=== PATIENT | female | born 1960 | race Hispanic/Latino ===

== ENCOUNTER 2020-05-26 15:57 | Emergency (ER) | payer BC ==
[2020-05-26] MEDS ORDERED: LIDOCAINE HCL 2% VISCOUS 15 ML UDCUP ONE (17:41)
[2020-05-26] MEDS ORDERED: MAG HYDROX/AL HYDROX/SIMETH ES 30 ML SUSP UDCUP ONE (17:41)
[2020-05-26] MEDS ORDERED: ACETAMINOPHEN 325 MG TAB ONE (20:42)
[2020-05-26] MEDS ORDERED: AZITHROMYCIN 250 MG TABLET PO ONE (23:19)
== END 2020-05-27 00:25 | disposition home or self-care (01) ==
LOC: EDH 15:57
DX: U07.1 COVID-19 (principal); K29.00 Acute gastritis without bleeding; J12.89 Other viral pneumonia; M19.90 Unspecified osteoarthritis, unspecified site; E11.9 Type 2 diabetes mellitus without complications; Z88.6 Allergy status to analgesic agent
CPT/HCPCS: 36415; 71045; 74176; 80053; 81001; 83690; 84484 ×2; 85025; 86677; 87804 ×2; 93005; 96361; 96374; 99285; U0003

== ENCOUNTER 2020-06-01 06:50 | Inpatient (IN) | payer BC ==
[~2020-06-01] VITALS: Ht 152.4 cm; Wt 68.7 kg
[2020-06-01 08:04] LABS: BASOPHILS % (AUTO) 0.3 % (0.0-5.0); HEMATOCRIT 38.4 % (36-48); LYMPHOCYTES % (AUTO) 11.6 % (21.0-51.0); MEAN CORPUSCULAR HEMOGLOBIN 29.5 pg (27.0-33.0); MEAN CORPUSCULAR HGB CONC 34.1 g/dL (32.0-36.0); MEAN CORPUSCULAR VOLUME 86.5 fL (79-99); MONOCYTES % (AUTO) 7.8 % (3.0-13.0); NEUTROPHILS % (AUTO) 78.8 % (40.0-77.0); PLATELET COUNT (AUTO) 392 K/uL (130-400); RED BLOOD CELL COUNT(AUTO) 4.44 MIL/uL (4.00-5.50); RED CELL DISTRIBUTION WIDTH 12.1 % (11.0-15.5); WHITE BLOOD COUNT (AUTO) 6.3 K/uL (4.8-10.8)
[2020-06-01] MEDS ORDERED: ALBUTEROL INHALER 90MCG/INH IH ONE ×2 (08:19→08:36)
[2020-06-01] MEDS ORDERED: ACETAMINOPHEN 325 MG TAB ONE (08:20)
[2020-06-01 08:23] LABS: INR 0.98 (0.85-1.15); PARTIAL THROMBOPLASTIN TIME 26.3 SEC (26.3-35.5); PROTHROMBIN TIME 10.6 SEC (9.6-11.6)
[2020-06-01 08:32] LABS: ALANINE AMINOTRANSFERASE 34 U/L (12-78); ALBUMIN 2.7 g/dL (3.5-5.0); ASPARTATE AMINOTRANSFERASE 22 U/L (10-37); BILIRUBIN,TOTAL 0.6 mg/dL (0.2-1.0); CARBON DIOXIDE 24 mmol/L (21-32); CHLORIDE 101 mmol/L (101-111); CREATINE KINASE, TOTAL 28 U/L (21-232); CREATININE 0.5 mg/dL (0.5-1.5); GLOMERULAR FILTR. RATE CALC 135 mL/min (>60); GLUCOSE,RANDOM 222 mg/dL (70-105); MYOGLOBIN 23 ng/mL (10-92); POTASSIUM 3.5 mmol/L (3.5-5.1); SODIUM SERUM 137 mmol/L (136-145); TOTAL PROTEIN, SERUM 7.1 g/dL (6.0-8.3); TROPONIN I < 0.04 ng/mL (0.00-0.06); UREA NITROGEN, BLOOD 14 mg/dL (7-18)
[2020-06-01] MEDS ORDERED: AZITHROMYCIN 500MG+NS 250ML 250 ML IV ONE ×2 (08:56→11:17)
[2020-06-01] MEDS ORDERED: CEFTRIAXONE SODIUM 1 GM ONE (08:56)
[2020-06-01] MEDS ORDERED: DEXAMETHASONE SOD PHOSPHATE 10MG/ML 1ML VIAL ONE (08:56)
[2020-06-01] MEDS ORDERED: LOPERAMIDE 1 MG/7.5 ML UDCUP PO PRN (11:45)
[2020-06-01] MEDS ORDERED: HYDRALAZINE HCL 20 MG/ML VIAL IV PRN (11:45)
[2020-06-01] MEDS ORDERED: POTASSIUM CHLORIDE 20 MEQ ERTAB PO PRN (11:45)
[2020-06-01] MEDS ORDERED: POTASSIUM CHLORIDE 20MEQ/100ML 100 ML IV PRN (11:45)
[2020-06-01] MEDS ORDERED: LIDOCAINE HCL-MPF 1% 2ML VIAL IV PRN (11:45)
[2020-06-01] MEDS ORDERED: GLUCAGON 1MG KIT 1 MG ML IM PRN (11:45)
[2020-06-01] MEDS ORDERED: ERGOCALCIFEROL (VITAMIN D2) 50,000 UNIT CAPSULE PO SCH (11:45)
[2020-06-01] MEDS ORDERED: LABETALOL 20 MG/4 ML DISP.SYRIN IV PRN (11:45)
[2020-06-01] MEDS ORDERED: ONDANSETRON HCL 4 MG/2 ML VIAL IVP PRN (11:45)
[2020-06-01] MEDS ORDERED: POTASSIUM CHLORIDE 10% ELIXIR 20 MEQ/15 ML UDCUP PO PRN (11:45)
[2020-06-01] MEDS ORDERED: DEXTROSE 50%-WATER 50 ML DISP.SYRIN IV PRN (11:45)
[2020-06-01] MEDS ORDERED: IPRATROPIUM/ALBUTEROL SULFATE 3 ML SOLUTION IH PRN (11:45)
[2020-06-01] MEDS: PHARMACY COMMUNICATION MISC SCH (12:00)
[2020-06-01] MEDS ORDERED: FUROSEMIDE 10 MG/ML 4ML VIAL ONE ×2 (12:35→21:57)
[2020-06-01] MEDS ORDERED: ERGOCALCIFEROL (VITAMIN D2) 50,000 UNIT CAPSULE ONE (12:35)
[2020-06-01] MEDS ORDERED: REMDESIVIR (INVESTIGATIONAL) 200 MG in SODIUM CHLORIDE 0.9% 250 ML IV SCH (16:30)
[2020-06-01] MEDS ORDERED: INSULIN HUMULIN R 100 UNIT/ML 3ML ONE ×2 (17:26→21:58)
[2020-06-01] MEDS: ENOXAPARIN SODIUM 40 MG/0.4 ML SYRINGE SQ SCH (21:00)
[2020-06-01] MEDS ORDERED: ENOXAPARIN SODIUM 40 MG/0.4 ML SYRINGE SQ ONE (21:57)
[2020-06-02 04:20] LABS: BASOPHILS % (AUTO) 0.2 % (0.0-5.0); HEMATOCRIT 37.7 % (36-48); LYMPHOCYTES % (AUTO) 16.8 % (21.0-51.0); MEAN CORPUSCULAR HEMOGLOBIN 29.3 pg (27.0-33.0); MEAN CORPUSCULAR HGB CONC 34.5 g/dL (32.0-36.0); MEAN CORPUSCULAR VOLUME 85.1 fL (79-99); MONOCYTES % (AUTO) 9.9 % (3.0-13.0); NEUTROPHILS % (AUTO) 72.7 % (40.0-77.0); PLATELET COUNT (AUTO) 477 K/uL (130-400); RED BLOOD CELL COUNT(AUTO) 4.43 MIL/uL (4.00-5.50); RED CELL DISTRIBUTION WIDTH 11.9 % (11.0-15.5); WHITE BLOOD COUNT (AUTO) 5.2 K/uL (4.8-10.8)
[2020-06-02 04:54] LABS: ALANINE AMINOTRANSFERASE 37 U/L (12-78); ALBUMIN 2.8 g/dL (3.5-5.0); ASPARTATE AMINOTRANSFERASE 21 U/L (10-37); BILIRUBIN,DIRECT 0.2 mg/dL (0.0-0.3); BILIRUBIN,TOTAL 0.5 mg/dL (0.2-1.0); CARBON DIOXIDE 26 mmol/L (21-32); CHLORIDE 99 mmol/L (101-111); CREATININE 0.6 mg/dL (0.5-1.5); GLOMERULAR FILTR. RATE CALC 109 mL/min (>60); GLUCOSE,RANDOM 159 mg/dL (70-105); LACTATE DEHYDROGENASE 233 U/L (81-234); POTASSIUM 3.2 mmol/L (3.5-5.1); SODIUM SERUM 138 mmol/L (136-145); TOTAL PROTEIN, SERUM 7.5 g/dL (6.0-8.3); UREA NITROGEN, BLOOD 16 mg/dL (7-18)
[2020-06-02] MEDS ORDERED: FUROSEMIDE 10 MG/ML 4ML VIAL ONE ×2 (07:26→23:24)
[2020-06-02] MEDS ORDERED: DEXAMETHASONE SOD PHOSPHATE 10MG/ML 1ML VIAL ONE (07:26)
[2020-06-02] MEDS ORDERED: PANTOPRAZOLE SODIUM 40 MG TABLET.DR ONE (07:27)
[2020-06-02] MEDS ORDERED: ZINC SULFATE 220 CAPSULE ONE (07:27)
[2020-06-02] MEDS ORDERED: ENOXAPARIN SODIUM 40 MG/0.4 ML SYRINGE SQ ONE ×2 (07:27→23:24)
[2020-06-02] MEDS ORDERED: POTASSIUM CHLORIDE 20 MEQ ERTAB PO ONE ×3 (08:46→16:12)
[2020-06-02] MEDS: PANTOPRAZOLE SODIUM 40 MG TABLET.DR PO SCH (09:00)
[2020-06-02] MEDS: ZINC SULFATE 220 CAPSULE PO SCH (09:00)
[2020-06-02] MEDS: DEXAMETHASONE SOD PHOSPHATE 4 MG/ML 1ML VIAL IVP SCH (09:00)
[2020-06-02] MEDS: ASCORBIC ACID 500 MG TAB PO SCH (09:00)
[2020-06-02] MEDS: FUROSEMIDE 10 MG/ML 4ML VIAL IV SCH ×2 (11:45→23:45)
[2020-06-02] MEDS ORDERED: INSULIN HUMULIN R 100 UNIT/ML 3ML ONE (12:20)
[2020-06-02] MEDS ORDERED: REMDESIVIR (INVESTIGATIONAL) 100 MG in SODIUM CHLORIDE 0.9% 250 ML IV SCH (16:30)
[2020-06-02] MEDS: PHARMACY COMMUNICATION MISC SCH (20:00)
[2020-06-02] MEDS: ENOXAPARIN SODIUM 40 MG/0.4 ML SYRINGE SQ SCH (21:00)
[2020-06-02] MEDS: INSULIN HUMULIN R 100 UNIT/ML 3ML SQ SCH (21:00)
[2020-06-02 23:50] VITALS: BP 116/67
[2020-06-03 03:20] VITALS: BP 93/64
[2020-06-03] MEDS: PHARMACY COMMUNICATION MISC SCH ×3 (04:00→20:00)
[2020-06-03 05:41] LABS: HEMATOCRIT 42.6 % (36-48); MEAN CORPUSCULAR HEMOGLOBIN 28.5 pg (27.0-33.0); MEAN CORPUSCULAR HGB CONC 32.9 g/dL (32.0-36.0); MEAN CORPUSCULAR VOLUME 86.8 fL (79-99); RED BLOOD CELL COUNT(AUTO) 4.91 MIL/uL (4.00-5.50); RED CELL DISTRIBUTION WIDTH 12.1 % (11.0-15.5); WHITE BLOOD COUNT (AUTO) 7.6 K/uL (4.8-10.8)
[2020-06-03 06:11] LABS: CREATININE 0.9 mg/dL (0.5-1.5); POTASSIUM 3.8 mmol/L (3.5-5.1)
[2020-06-03] MEDS: INSULIN HUMULIN R 100 UNIT/ML 3ML SQ SCH ×4 (06:50→20:28)
[2020-06-03 08:00] VITALS: BP 110/65
[2020-06-03] MEDS: ZINC SULFATE 220 CAPSULE PO SCH (08:29)
[2020-06-03] MEDS: ASCORBIC ACID 500 MG TAB PO SCH (08:32)
[2020-06-03] MEDS: PANTOPRAZOLE SODIUM 40 MG TABLET.DR PO SCH (08:32)
[2020-06-03] MEDS: DEXAMETHASONE SOD PHOSPHATE 4 MG/ML 1ML VIAL IVP SCH (08:33)
[2020-06-03] MEDS: ENOXAPARIN SODIUM 40 MG/0.4 ML SYRINGE SQ SCH ×2 (08:36→20:29)
[2020-06-03 11:30] VITALS: BP 94/62
[2020-06-03] MEDS: FUROSEMIDE 10 MG/ML 4ML VIAL IV SCH (12:51)
[2020-06-03 15:30] VITALS: BP 127/74
[2020-06-03 19:20] VITALS: BP 99/73
[2020-06-03 23:33] LABS: APPEARANCE,URINE Clear (CLEAR); BILIRUBIN,URINE Negative (NEGATIVE); COLOR,URINE Yellow (YELLOW); GLUCOSE, URINE (UA) Negative (NEGATIVE); KETONES,URINE Negative (NEGATIVE); LEUKOCYTE ESTERASE ,URINE Negative (NEGATIVE); NITRATE,URINE Negative (NEGATIVE); OCCULT BLOOD,URINE Negative (NEGATIVE); PROTEIN,URINE Negative (NEGATIVE)
[2020-06-03 23:51] VITALS: BP 116/71
[2020-06-04] VITALS (8 sets, daily range): BP systolic 94–116; BP diastolic 37–71
[2020-06-04] MEDS: PHARMACY COMMUNICATION MISC SCH ×3 (03:35→19:03)
[2020-06-04 05:49] LABS: CREATININE 0.8 mg/dL (0.5-1.5); POTASSIUM 4.1 mmol/L (3.5-5.1)
[2020-06-04 05:53] LABS: BASOPHILS % (AUTO) 0.3 % (0.0-5.0); EOSINOPHILS % (AUTO) 0.4 % (0.0-8.0); HEMATOCRIT 42.2 % (36-48); LYMPHOCYTES % (AUTO) 29.5 % (21.0-51.0); MEAN CORPUSCULAR HEMOGLOBIN 29.8 pg (27.0-33.0); MEAN CORPUSCULAR HGB CONC 34.6 g/dL (32.0-36.0); MEAN CORPUSCULAR VOLUME 86.1 fL (79-99); MONOCYTES % (AUTO) 9.3 % (3.0-13.0); NEUTROPHILS % (AUTO) 60.1 % (40.0-77.0); PLATELET COUNT (AUTO) 609 K/uL (130-400); WHITE BLOOD COUNT (AUTO) 6.7 K/uL (4.8-10.8)
[2020-06-04] MEDS: INSULIN HUMULIN R 100 UNIT/ML 3ML SQ SCH ×4 (05:59→20:08)
[2020-06-04] MEDS: FUROSEMIDE 10 MG/ML 4ML VIAL IV SCH ×3 (06:10→22:08)
[2020-06-04] MEDS: PHARMACY COMMUNICATION** REMDESIVIR ORDER MISC SCH ×3 (06:30→22:08)
[2020-06-04] MEDS: ASCORBIC ACID 500 MG TAB PO SCH (08:29)
[2020-06-04] MEDS: PANTOPRAZOLE SODIUM 40 MG TABLET.DR PO SCH (08:29)
[2020-06-04] MEDS: ZINC SULFATE 220 CAPSULE PO SCH (08:29)
[2020-06-04] MEDS: ENOXAPARIN SODIUM 40 MG/0.4 ML SYRINGE SQ SCH ×2 (08:29→20:08)
[2020-06-04] MEDS: DEXAMETHASONE SOD PHOSPHATE 4 MG/ML 1ML VIAL IVP SCH (08:29)
[2020-06-05] MEDS: PHARMACY COMMUNICATION MISC SCH ×3 (03:32→20:00)
[2020-06-05 03:40] VITALS: BP 95/58
[2020-06-05] MEDS: PHARMACY COMMUNICATION** REMDESIVIR ORDER MISC SCH ×3 (05:34→22:30)
[2020-06-05] MEDS: INSULIN HUMULIN R 100 UNIT/ML 3ML SQ SCH ×4 (05:36→21:31)
[2020-06-05 08:00] VITALS: BP 105/55
[2020-06-05] MEDS: FUROSEMIDE 10 MG/ML 4ML VIAL IV SCH ×2 (08:58→23:25)
[2020-06-05] MEDS: ZINC SULFATE 220 CAPSULE PO SCH (08:58)
[2020-06-05] MEDS: PANTOPRAZOLE SODIUM 40 MG TABLET.DR PO SCH (08:59)
[2020-06-05] MEDS: ENOXAPARIN SODIUM 40 MG/0.4 ML SYRINGE SQ SCH ×2 (08:59→21:30)
[2020-06-05] MEDS: ASCORBIC ACID 500 MG TAB PO SCH (08:59)
[2020-06-05] MEDS: DEXAMETHASONE SOD PHOSPHATE 4 MG/ML 1ML VIAL IVP SCH (09:00)
[2020-06-05] MEDS: LACTULOSE 20 GM/30 ML UDCUP PO PRN (09:06)
[2020-06-05 11:30] VITALS: BP 113/63
[2020-06-05 15:30] VITALS: BP 112/58
[2020-06-05 20:28] VITALS: BP 113/57
[2020-06-05 23:43] VITALS: BP 91/57
[2020-06-06 04:13] VITALS: BP 105/71
[2020-06-06] MEDS: PHARMACY COMMUNICATION** REMDESIVIR ORDER MISC SCH ×3 (06:02→22:30)
[2020-06-06] MEDS: INSULIN HUMULIN R 100 UNIT/ML 3ML SQ SCH ×4 (07:30→21:16)
[2020-06-06 08:00] VITALS: BP 94/66
[2020-06-06] MEDS: DEXAMETHASONE SOD PHOSPHATE 4 MG/ML 1ML VIAL IVP SCH (10:00)
[2020-06-06] MEDS: ASCORBIC ACID 500 MG TAB PO SCH (10:01)
[2020-06-06] MEDS: ZINC SULFATE 220 CAPSULE PO SCH (10:01)
[2020-06-06] MEDS: PANTOPRAZOLE SODIUM 40 MG TABLET.DR PO SCH (10:01)
[2020-06-06] MEDS: ENOXAPARIN SODIUM 40 MG/0.4 ML SYRINGE SQ SCH ×2 (10:02→21:06)
[2020-06-06 12:00] VITALS: BP 98/61
[2020-06-06] MEDS: FUROSEMIDE 10 MG/ML 4ML VIAL IV SCH (13:09)
[2020-06-06 16:00] VITALS: BP 110/71
[2020-06-06 21:01] VITALS: BP 111/74
[2020-06-07] VITALS (7 sets, daily range): BP systolic 92–127; BP diastolic 56–74
[2020-06-07] MEDS: FUROSEMIDE 10 MG/ML 4ML VIAL IV SCH ×3 (00:04→23:16)
[2020-06-07] MEDS: PHARMACY COMMUNICATION** REMDESIVIR ORDER MISC SCH ×3 (04:56→21:51)
[2020-06-07] MEDS: INSULIN HUMULIN R 100 UNIT/ML 3ML SQ SCH ×4 (06:02→21:25)
[2020-06-07] MEDS: ENOXAPARIN SODIUM 40 MG/0.4 ML SYRINGE SQ SCH ×2 (07:54→20:58)
[2020-06-07] MEDS: PANTOPRAZOLE SODIUM 40 MG TABLET.DR PO SCH (07:54)
[2020-06-07] MEDS: ASCORBIC ACID 500 MG TAB PO SCH (07:54)
[2020-06-07] MEDS: ZINC SULFATE 220 CAPSULE PO SCH (07:54)
[2020-06-07] MEDS: DEXAMETHASONE SOD PHOSPHATE 4 MG/ML 1ML VIAL IVP SCH (07:55)
[2020-06-07] MEDS: LACTULOSE 20 GM/30 ML UDCUP PO PRN (07:56)
[2020-06-07] MEDS ORDERED: ASPI-1026 PO (16:28)
[2020-06-07] MEDS ORDERED: PRED20TA3 PO (16:28)
[2020-06-07] MEDS ORDERED: FURO20TA6 PO (16:28)
[2020-06-08] MEDS: PHARMACY COMMUNICATION** REMDESIVIR ORDER MISC SCH ×2 (03:13→08:31)
[2020-06-08 03:53] VITALS: BP 100/65
[2020-06-08] MEDS: INSULIN HUMULIN R 100 UNIT/ML 3ML SQ SCH ×2 (06:14→12:00)
[2020-06-08 08:00] VITALS: BP_SYST 91; BP_SYST 97; BP_DIAS 57; BP_DIAS 63; BP_DIAS 65
[2020-06-08] MEDS: ENOXAPARIN SODIUM 40 MG/0.4 ML SYRINGE SQ SCH (08:29)
[2020-06-08] MEDS: DEXAMETHASONE SOD PHOSPHATE 4 MG/ML 1ML VIAL IVP SCH (08:29)
[2020-06-08] MEDS: ZINC SULFATE 220 CAPSULE PO SCH (08:29)
[2020-06-08] MEDS: PANTOPRAZOLE SODIUM 40 MG TABLET.DR PO SCH (08:29)
[2020-06-08] MEDS: ASCORBIC ACID 500 MG TAB PO SCH (08:29)
[2020-06-08] MEDS: FUROSEMIDE 10 MG/ML 4ML VIAL IV SCH (11:45)
[2020-06-08 12:00] VITALS: BP 112/48
== END 2020-06-08 15:50 | disposition home or self-care (01) | DRG 871 ==
LOC: EDH 06:50 → OBSVTOIN 10:44 → EDHIP 10:44 → 4AH 06-02 23:45
PROVIDERS: ADMIT Internal Medicine; ATTEND Internal Medicine
PROC: 30233K1 Transfusion of Nonautologous Frozen Plasma into Peripheral Vein, Percutaneous Approach (ICD-10-PCS; principal; 2020-06-04)
DX: A41.89 Other specified sepsis (principal); U07.1 COVID-19; J12.89 Other viral pneumonia; J96.91 Respiratory failure, unspecified with hypoxia; E11.9 Type 2 diabetes mellitus without complications; E66.9 Obesity, unspecified; M19.90 Unspecified osteoarthritis, unspecified site; Z74.01 Bed confinement status; Z79.84 Long term (current) use of oral hypoglycemic drugs; Z83.3 Family history of diabetes mellitus; Z88.6 Allergy status to analgesic agent; Z68.29 Body mass index [BMI] 29.0-29.9, adult
CPT/HCPCS: 36415; 71045; 71250; 80048; 80053; 80076; 81003; 82550; 82728; 82948; 83605; 83615; 83735; 83874; 83880; 84145; 84484; 85025; 85027; 85378; 85610; 85730; 86140; 86900; 86901; 86927; 87040; 87088; 93005; 94760; 99291; G0378; J0456; J0696; J1100; J1650; J1815; J1940; J7050; P9017